=== PATIENT | female | born 1945 | race Caucasian/White ===

== ENCOUNTER 2016-06-16 17:14 | Emergency (ER) | payer OTHER ==
[~2016-06-16] VITALS: Ht 157.5 cm; Wt 50.4 kg
[~2016-06-16 17:14] MED LIST: ADVIL200 MG PO; AMITIZA24 MICROGR PO; ATARAX10 MG PO; ATIVAN0.5 MG PO; BENADRYL ALLERG25 MG PO; BISAC-EVAC10 MG PR; BUSPAR10 MG PO; BUSPAR5 MG PO; BUSPIRONE HCL10 MG PO; CELEXA10 MG PO; CLONAZEPAM1 MG PO; DAILY VITAMIN1 EAC8 PO; DICYCLOMINE HCL10 MG PO; DOCUSATE SODIU100 MG PO; ESCITALOPRAM OX20 MG PO; FIBER500 MG PO; FLEET ENEMA-AD118 ML PR; FLUVOXAMINE MA100 MG PO; GAS-X80 MG PO; HYDROCODON-ACE1 EAC7 PO; KLONOPIN0.5 M1; LEVAQUIN500 MG PO; LEXAPRO20 MG PO; LEXAPRO5 MG PO; LINZESS290 MCG PO; LORAZEPAM0.5 MG PO; LOVENOX30 MG/0.3 SC; MAALOX ADVANCE1 EACH PO; MAALOX ADVANCE355 ML PO; MILK OF MAGNESI10 ML PO; MIRALAX17 GM PO; MIRALAX255 GM PO; MOTRIN IB200 MG PO; NEXIUM40 MG PO; NOHOMEMEDS; OLANZAPINE2.5 MG PO; OLANZAPINE5 MG PO; ONE-A-DAY ESSE1 EAC1 PO; POLYETHYLENE GL17 GM PO; PROBIOTIC1 EAC1 PO; PROZAC20 MG PO; PROZAC40 MG PO; SENNA8.6 MG PO; STOOL SOFTENER100 MG PO; TUMS500 MG PO; ZANTAC150 MG PO; ZOLPIDEM TARTRAT5 MG PO
[2016-06-16 17:56] LABS: HEMATOCRIT 35.5 % (36.0-46.0); MCH 25.9 PG (29.0-34.0); MCHC 33.2 G/DL (30.0-36.0); MEAN PLAT.VOLUME 9.9 uM^3 (9.5-12.4); PLATELET COUNT 352 K/uL (156-360); RBC DIS.WIDTH-CV 13.9 % (11.8-14.6); RBC DIS.WIDTH-SD 38.4 % (39-53); RED BLOOD COUNT 4.55 M/uL (3.80-5.20); WHITE BLOOD COUNT 7.3 K/uL (4.1-10.2)
[2016-06-16 18:11] LABS: CHLORIDE 95 mEq/L (99-109); POTASSIUM 4.1 mEq/L (3.7-5.4); SODIUM 128 mEq/L (136-147)
[2016-06-16 18:13] LABS: GLUCOSE 88 mg/dL (70-99)
[2016-06-16 18:14] LABS: ANION GAP 10 MEQ/L (2-14)
[2016-06-16 18:15] LABS: TOTAL BILIRUBIN 0.6 mg/dL (0.0-1.0)
[2016-06-16 18:16] LABS: ALKALINE PHOSPHATASE 52 IU/L (3-129)
[2016-06-16 18:17] LABS: GFR ESTIMATE (CALCULATED) 58 mL/min/
[2016-06-16 18:18] LABS: UREA NITROGEN (BUN) 11 mg/dL (9-23)
[2016-06-16 22:56] LABS: ADD MIUA? YES; BILIRUBIN NEGATIVE; BLOOD NEGATIVE; COLOR STRAW ((YELLOW)); GLUCOSE (STRIP) NEGATIVE; KETONES 20; LEUKOCYTES MODERATE; NITRITE NEGATIVE; PROTEIN (STRIP) NEGATIVE; SPECIFIC GRAVITY 1.006 (1.000-1.030); UROBILINOGEN 0.2 MG/DL (0.2-1.0)
[2016-06-16 23:15] LABS: BACTERIA NONE SEEN /HPF; EPITHELIAL CELLS RARE /HPF; MUCUS TRACE /LPF; RED BLOOD CELLS 0-5 /HPF (0-5); UCUL ADDED? NO; WHITE BLOOD CELLS 0-5 /HPF (0-5)
[2016-06-17 04:49] VITALS: BP 144/77
[2016-06-18] MEDS ORDERED: CITALOPRAM HBR40 MG PO (20:51)
[2016-06-18] MEDS ORDERED: LORAZEPAM0.5 MG PO (20:53)
[2016-06-18] MEDS ORDERED: NEXIUM40 MG PO (20:54)
== END 2016-06-17 04:51 | disposition home or self-care (01) ==
LOC: EME 17:14
DX: R19.7 Diarrhea, unspecified (principal)
CPT/HCPCS: 74020; 80053; 81003; 85027; 99281; 99284; J7030

== ENCOUNTER 2016-06-18 16:06 | Inpatient (IN) | payer OTHER ==
[~2016-06-18] VITALS: Ht 157.5 cm; Wt 46.6 kg
[2016-06-18 16:58] LABS: ADD MIUA? YES; BILIRUBIN NEGATIVE; BLOOD NEGATIVE; COLOR YELLOW ((YELLOW)); GLUCOSE (STRIP) NEGATIVE; KETONES 20; LEUKOCYTES TRACE; NITRITE NEGATIVE; PROTEIN (STRIP) NEGATIVE; SPECIFIC GRAVITY 1.009 (1.000-1.030); UROBILINOGEN 0.2 MG/DL (0.2-1.0)
[2016-06-18 17:07] LABS: ADD MEDTOX COMMENT Y; AMPHETAMINE NEGATIVE (500 ng/mL); BARBITURATES NEGATIVE (200 ng/mL); BENZODIAZEPINES PRESUMPTIVE POSITIVE (150 ng/mL); COCAINE NEGATIVE (150 ng/mL); INTERNAL CONTROLS VALID? YES; METHADONE NEGATIVE (200 ng/mL); METHAMPHETAMINE NEGATIVE (500 ng/mL); OPIATES (MORPHINE) NEGATIVE (100 ng/mL); OXYCODONE NEGATIVE (100 ng/mL); PHENCYCLIDINE NEGATIVE (25 ng/mL); PROPOXYPHENE NEGATIVE (300 ng/mL); THC CANNABINOIDS NEGATIVE (50 ng/mL); TRICYCLIC ANTIDEPRESSANTS NEGATIVE (300 ng/mL)
[2016-06-18 17:13] LABS: BACTERIA NONE SEEN /HPF; EPITHELIAL CELLS RARE /HPF; MUCUS 2+ /LPF; RED BLOOD CELLS 0-5 /HPF (0-5); UCUL ADDED? NO; WHITE BLOOD CELLS 0-5 /HPF (0-5)
[2016-06-18 17:27] LABS: HEMATOCRIT 35.1 % (36.0-46.0); MCH 25.7 PG (29.0-34.0); MCHC 32.8 G/DL (30.0-36.0); MCV 78.5 FL (83-99); MEAN PLAT.VOLUME 10.1 uM^3 (9.5-12.4); PLATELET COUNT 343 K/uL (156-360); RBC DIS.WIDTH-SD 38.8 % (39-53); RED BLOOD COUNT 4.47 M/uL (3.80-5.20); WHITE BLOOD COUNT 6.5 K/uL (4.1-10.2)
[2016-06-18 17:37] LABS: CHLORIDE 102 mEq/L (99-109); POTASSIUM 4.2 mEq/L (3.7-5.4); SODIUM 134 mEq/L (136-147)
[2016-06-18 17:38] LABS: GLUCOSE 63 mg/dL (70-99)
[2016-06-18 17:40] LABS: ANION GAP 9 MEQ/L (2-14)
[2016-06-18 17:41] LABS: SERUM ETHYL ALCOHOL < 10 mg/dL
[2016-06-18 17:42] LABS: GFR ESTIMATE (CALCULATED) > 59 mL/min/
[2016-06-18 17:43] LABS: UREA NITROGEN (BUN) 11 mg/dL (9-23)
[2016-06-18 17:45] LABS: CREATINE KINASE 82 IU/L (1-294); TOTAL CK 82 IU/L (1-294)
[2016-06-18 17:48] LABS: BENZODIAZEPINES QUANT VALUE 0 NG/ML
[2016-06-18 17:50] LABS: BENZODIAZEPINES, URINE SCREEN Negative (200 ng/mL)
[2016-06-18 17:53] LABS: CK-MB 2.3 ng/mL (0.0-4.9)
[2016-06-18 20:20] VITALS: BP 138/73
[2016-06-18] MEDS ORDERED: CITALOPRAM HBR40 MG PO (20:51)
[2016-06-18] MEDS ORDERED: LORAZEPAM0.5 MG PO (20:53)
[2016-06-18] MEDS ORDERED: NEXIUM40 MG PO (20:54)
[2016-06-19 07:40] VITALS: BP 101/52
[2016-06-19 15:52] VITALS: BP 130/61
[2016-06-20 07:52] VITALS: BP 111/54
[2016-06-20 15:25] VITALS: BP 123/66
[2016-06-21 07:48] VITALS: BP 122/58
[2016-06-21 15:15] VITALS: BP 138/74
[2016-06-22 07:52] VITALS: BP 128/58
[2016-06-22 15:16] VITALS: BP 155/73
[2016-06-23 07:46] VITALS: BP 113/53
[2016-06-23 15:24] VITALS: BP 136/72
[2016-06-24 07:54] VITALS: BP 119/57
[2016-06-24 15:37] VITALS: BP 127/69
[2016-06-25 08:00] VITALS: BP 125/62
[2016-06-25 15:38] VITALS: BP 147/72
[2016-06-26 09:22] VITALS: BP 111/57
[2016-06-27 07:37] VITALS: BP 126/60
[2016-06-27 15:28] VITALS: BP 155/72
[2016-06-28 08:06] VITALS: BP 127/59
[2016-06-28 15:02] VITALS: BP 148/64
[2016-06-29 07:36] VITALS: BP 111/52
[2016-06-29 15:32] VITALS: BP 159/74
[2016-06-30 08:03] VITALS: BP 127/60
[2016-06-30 15:04] VITALS: BP 111/71
[2016-07-01 07:39] VITALS: BP 152/67
[2016-07-01] MEDS ORDERED: FIBER TABS625 MG PO (09:09)
[2016-07-01] MEDS ORDERED: ESCITALOPRAM OX20 MG PO (09:09)
[2016-07-01] MEDS ORDERED: PANTOPRAZOLE SO40 MG PO (09:09)
[2016-07-01] MEDS ORDERED: OLANZAPINE2.5 MG PO (09:09)
[2016-07-01] MEDS ORDERED: LORAZEPAM0.5 MG PO (09:09)
[2016-07-01] MEDS ORDERED: MILK OF MAGNESI10 ML PO (09:09)
== END 2016-07-01 13:49 | disposition home or self-care (01) | DRG 885 ==
LOC: EME 16:06 → 1WEST 20:00 → EDOF 20:00 → 1WEST 20:17
PROVIDERS: Emergency Medicine
DX: F33.2 Major depressive disorder, recurrent severe without psychotic features (principal); F60.5 Obsessive-compulsive personality disorder; F60.7 Dependent personality disorder; Z68.1 Body mass index [BMI] 19.9 or less, adult; Z72.4 Inappropriate diet and eating habits; F41.9 Anxiety disorder, unspecified; K58.1 Irritable bowel syndrome with constipation; I10 Essential (primary) hypertension; K21.9 Gastro-esophageal reflux disease without esophagitis; M81.0 Age-related osteoporosis without current pathological fracture; G47.00 Insomnia, unspecified; Z87.81 Personal history of (healed) traumatic fracture
CPT/HCPCS: 74176; 80048; 81003; 82550; 82553; 84999; 85027; 87086; 90837; 97150 GO; 97166 GO; 99281; 99285; G0480

== ENCOUNTER 2016-09-24 20:46 | Emergency (ER) | payer OTHER ==
[~2016-09-24] VITALS: Ht 157.5 cm; Wt 48.7 kg
[~2016-09-24 20:46] MED LIST changes: +CITALOPRAM HBR40 MG PO; +FIBER TABS625 MG PO; +PANTOPRAZOLE SO40 MG PO
[2016-09-24 23:46] LABS: CHLORIDE 101 mEq/L (99-109); POTASSIUM 4.7 mEq/L (3.7-5.4); SODIUM 135 mEq/L (136-147)
[2016-09-24 23:48] LABS: GLUCOSE 79 mg/dL (70-99)
[2016-09-24 23:49] LABS: ANION GAP 11 MEQ/L (2-14)
[2016-09-24 23:50] LABS: TOTAL BILIRUBIN 0.5 mg/dL (0.0-1.0)
[2016-09-24 23:52] LABS: ALKALINE PHOSPHATASE 56 IU/L (3-129); GFR ESTIMATE (CALCULATED) > 59 mL/min/
[2016-09-24 23:53] LABS: UREA NITROGEN (BUN) 18 mg/dL (9-23)
[2016-09-24 23:55] LABS: LIPASE 45 U/L (1.0-51.0)
[2016-09-25 00:19] LABS: HEMATOCRIT 34.2 % (36.0-46.0); MCH 26.3 PG (29.0-34.0); MCHC 31.9 G/DL (30.0-36.0); MCV 82.4 FL (83-99); MEAN PLAT.VOLUME 9.3 uM^3 (9.5-12.4); PLATELET COUNT 283 K/uL (156-360); RBC DIS.WIDTH-CV 15.9 % (11.8-14.6); RBC DIS.WIDTH-SD 47.8 % (39-53); RED BLOOD COUNT 4.15 M/uL (3.80-5.20); WHITE BLOOD COUNT 5.9 K/uL (4.1-10.2)
[2016-09-25 00:44] LABS: ADD MIUA? NO; BILIRUBIN NEGATIVE; BLOOD NEGATIVE; COLOR COLORLESS ((YELLOW)); GLUCOSE (STRIP) NEGATIVE; KETONES NEGATIVE; LEUKOCYTES NEGATIVE; NITRITE NEGATIVE; PROTEIN (STRIP) NEGATIVE; SPECIFIC GRAVITY 1.004 (1.000-1.030); UCUL ADDED? NO; UROBILINOGEN 0.2 MG/DL (0.2-1.0)
[2016-09-25] MEDS ORDERED: CITRATE OF MAG296 ML PO (00:44)
[2016-09-25] MEDS ORDERED: COLACE100 MG PO (00:44)
[2016-09-25] MEDS ORDERED: CARAFATE100 MG/ML PO (00:46)
[2016-09-25 01:59] VITALS: BP 151/67
== END 2016-09-25 02:00 | disposition home or self-care (01) ==
LOC: EME 20:46
PROVIDERS: Emergency Medicine
DX: R10.9 Unspecified abdominal pain (principal); K59.00 Constipation, unspecified; F42.9 Obsessive-compulsive disorder, unspecified; F32.9 Major depressive disorder, single episode, unspecified; I10 Essential (primary) hypertension; K21.9 Gastro-esophageal reflux disease without esophagitis
CPT/HCPCS: 74176; 80053; 81003; 83605; 83690; 85027; 93005; 99281; 99284; J2405; J7030

== ENCOUNTER 2016-10-05 14:49 | Emergency (ER) | payer OTHER ==
[~2016-10-05] VITALS: Ht 157.5 cm; Wt 47.1 kg
[~2016-10-05 14:49] MED LIST changes: +CARAFATE100 MG/ML PO; +CITRATE OF MAG296 ML PO; +COLACE100 MG PO
[2016-10-05 15:36] LABS: HEMATOCRIT 38.6 % (36.0-46.0); MCH 27.2 PG (29.0-34.0); MCHC 32.6 G/DL (30.0-36.0); MCV 83.2 FL (83-99); MEAN PLAT.VOLUME 9.8 uM^3 (9.5-12.4); PLATELET COUNT 284 K/uL (156-360); RBC DIS.WIDTH-CV 15.1 % (11.8-14.6); RBC DIS.WIDTH-SD 45.5 % (39-53); RED BLOOD COUNT 4.64 M/uL (3.80-5.20); WHITE BLOOD COUNT 5.4 K/uL (4.1-10.2)
[2016-10-05 15:46] LABS: CHLORIDE 99 mEq/L (99-109); POTASSIUM 4.1 mEq/L (3.7-5.4); SODIUM 135 mEq/L (136-147)
[2016-10-05 15:47] LABS: GLUCOSE 90 mg/dL (70-99)
[2016-10-05 15:49] LABS: ANION GAP 8 MEQ/L (2-14)
[2016-10-05 15:51] LABS: GFR ESTIMATE (CALCULATED) > 59 mL/min/
[2016-10-05 15:52] LABS: UREA NITROGEN (BUN) 15 mg/dL (9-23)
[2016-10-05 18:29] VITALS: BP 132/71
== END 2016-10-05 18:35 | disposition home or self-care (01) ==
LOC: EME 14:49
PROVIDERS: Emergency Medicine
DX: F42.9 Obsessive-compulsive disorder, unspecified (principal); R42 Dizziness and giddiness; I10 Essential (primary) hypertension; K21.9 Gastro-esophageal reflux disease without esophagitis; M81.0 Age-related osteoporosis without current pathological fracture; K58.9 Irritable bowel syndrome, unspecified
CPT/HCPCS: 80048; 85027; 99281; 99285; J7040

== ENCOUNTER 2016-10-06 15:22 | Emergency (ER) | payer OTHER ==
[~2016-10-06] VITALS: Ht 157.5 cm; Wt 46.6 kg
[2016-10-06 16:55] LABS: EOSINOPHIL (%) 0.6 % (0-5); EOSINOPHIL COUNT 0.1 K/uL (0-0.3); HEMATOCRIT 38.6 % (36.0-46.0); IMMATURE GRANULOCYTE (%) 0.2 % (0.0-0.7); INSTRUMENT ABS NEUTROPHIL CT 6.4 K/uL; LYMPHOCYTE COUNT 1.1 K/uL (1.0-2.8); MCH 27.3 PG (29.0-34.0); MCHC 32.6 G/DL (30.0-36.0); MCV 83.5 FL (83-99); MEAN PLAT.VOLUME 9.6 uM^3 (9.5-12.4); MONOCYTE (%) 7.1 % (3-12); MONOCYTE COUNT 0.6 K/uL (0-0.8); NEUTROPHIL (%) 78.3 % (45-76); NEUTROPHIL COUNT 6.4 K/uL (1.8-6.4); PLATELET COUNT 304 K/uL (156-360); RBC DIS.WIDTH-CV 14.8 % (11.8-14.6); RBC DIS.WIDTH-SD 45.1 % (39-53); RED BLOOD COUNT 4.62 M/uL (3.80-5.20); WHITE BLOOD COUNT 8.2 K/uL (4.1-10.2)
[2016-10-06 16:59] LABS: CHLORIDE 101 mEq/L (99-109); POTASSIUM 4.1 mEq/L (3.7-5.4); SODIUM 134 mEq/L (136-147)
[2016-10-06 17:01] LABS: GLUCOSE 91 mg/dL (70-99)
[2016-10-06 17:02] LABS: ANION GAP 5 MEQ/L (2-14)
[2016-10-06 17:03] LABS: TOTAL BILIRUBIN 0.4 mg/dL (0.0-1.0)
[2016-10-06 17:05] LABS: ALKALINE PHOSPHATASE 52 IU/L (3-129); GFR ESTIMATE (CALCULATED) > 59 mL/min/
[2016-10-06 17:06] LABS: UREA NITROGEN (BUN) 16 mg/dL (9-23)
[2016-10-06 17:08] LABS: LIPASE 72 U/L (1.0-51.0)
[2016-10-07 02:06] LABS: ADD MIUA? NO; BILIRUBIN NEGATIVE; BLOOD NEGATIVE; COLOR STRAW ((YELLOW)); GLUCOSE (STRIP) NEGATIVE; KETONES NEGATIVE; LEUKOCYTES NEGATIVE; NITRITE NEGATIVE; PROTEIN (STRIP) NEGATIVE; SPECIFIC GRAVITY 1.008 (1.000-1.030); UCUL ADDED? NO; UROBILINOGEN 0.2 MG/DL (0.2-1.0)
[2016-10-07] MEDS ORDERED: LORAZEPAM0.5 MG PO (13:37)
[2016-10-07] MEDS ORDERED: LINZESS290 MCG PO (13:40)
[2016-10-07] MEDS ORDERED: PANTOPRAZOLE SO40 MG PO (13:40)
[2016-10-07 15:22] VITALS: BP 152/75
== END 2016-10-07 15:23 | disposition home or self-care (01) ==
LOC: EME → EDBD 15:22 → EME 10-07 15:23
PROVIDERS: Emergency Medicine
DX: F42.9 Obsessive-compulsive disorder, unspecified (principal); F33.2 Major depressive disorder, recurrent severe without psychotic features; F41.9 Anxiety disorder, unspecified; F60.7 Dependent personality disorder; R19.7 Diarrhea, unspecified; I10 Essential (primary) hypertension; K21.9 Gastro-esophageal reflux disease without esophagitis; M81.0 Age-related osteoporosis without current pathological fracture
CPT/HCPCS: 71020; 74176; 80053; 81003; 83690; 85025; 90837; 99281; 99285

== ENCOUNTER 2016-10-26 17:29 | Emergency (ER) | payer OTHER ==
[~2016-10-26] VITALS: Ht 157.5 cm; Wt 38.0 kg
[2016-10-26 21:34] VITALS: BP 175/89
== END 2016-10-26 21:53 | disposition home or self-care (01) ==
LOC: EME 17:29
DX: E46 Unspecified protein-calorie malnutrition (principal); F42.9 Obsessive-compulsive disorder, unspecified; I10 Essential (primary) hypertension; K21.9 Gastro-esophageal reflux disease without esophagitis
CPT/HCPCS: 99281; 99285

== ENCOUNTER 2016-11-02 12:36 | Emergency (ER) | payer OTHER ==
[~2016-11-02] VITALS: Ht 160 cm; Wt 40.7 kg
[2016-11-02 13:32] LABS: HEMATOCRIT 40.7 % (36.0-46.0); MCH 27.6 PG (29.0-34.0); MCHC 32.7 G/DL (30.0-36.0); MCV 84.4 FL (83-99); MEAN PLAT.VOLUME 9.6 uM^3 (9.5-12.4); PLATELET COUNT 268 K/uL (156-360); RBC DIS.WIDTH-CV 13.5 % (11.8-14.6); RED BLOOD COUNT 4.82 M/uL (3.80-5.20); WHITE BLOOD COUNT 3.8 K/uL (4.1-10.2)
[2016-11-02 13:45] LABS: CHLORIDE 101 mEq/L (99-109); POTASSIUM 3.9 mEq/L (3.7-5.4); SODIUM 136 mEq/L (136-147)
[2016-11-02 13:47] LABS: GLUCOSE 72 mg/dL (70-99)
[2016-11-02 13:48] LABS: ANION GAP 10 MEQ/L (2-14)
[2016-11-02 13:50] LABS: SERUM ETHYL ALCOHOL < 10 mg/dL
[2016-11-02 13:51] LABS: GFR ESTIMATE (CALCULATED) > 59 mL/min/
[2016-11-02 13:52] LABS: UREA NITROGEN (BUN) 12 mg/dL (9-23)
[2016-11-02 13:54] LABS: SALICYLATE < 5.0 MG/DL (15-30)
[2016-11-02 16:33] LABS: ADD MIUA? YES; BILIRUBIN NEGATIVE; BLOOD NEGATIVE; COLOR STRAW ((YELLOW)); GLUCOSE (STRIP) NEGATIVE; KETONES 5; LEUKOCYTES SMALL; NITRITE NEGATIVE; PROTEIN (STRIP) NEGATIVE; SPECIFIC GRAVITY 1.005 (1.000-1.030); UROBILINOGEN 0.2 MG/DL (0.2-1.0)
[2016-11-02 16:36] LABS: BACTERIA RARE /HPF; EPITHELIAL CELLS RARE /HPF; MUCUS TRACE /LPF; RED BLOOD CELLS 0-5 /HPF (0-5); WHITE BLOOD CELLS 0-5 /HPF (0-5)
[2016-11-02 16:43] LABS: ADD MEDTOX COMMENT Y; AMPHETAMINE NEGATIVE (500 ng/mL); BARBITURATES NEGATIVE (200 ng/mL); BENZODIAZEPINES PRESUMPTIVE POSITIVE (150 ng/mL); COCAINE NEGATIVE (150 ng/mL); INTERNAL CONTROLS VALID? YES; METHADONE NEGATIVE (200 ng/mL); METHAMPHETAMINE NEGATIVE (500 ng/mL); OPIATES (MORPHINE) NEGATIVE (100 ng/mL); OXYCODONE NEGATIVE (100 ng/mL); PHENCYCLIDINE NEGATIVE (25 ng/mL); PROPOXYPHENE NEGATIVE (300 ng/mL); THC CANNABINOIDS NEGATIVE (50 ng/mL); TRICYCLIC ANTIDEPRESSANTS NEGATIVE (300 ng/mL)
[2016-11-02 17:00] LABS: BENZODIAZEPINES QUANT VALUE 0 NG/ML; BENZODIAZEPINES, URINE SCREEN Negative (200 ng/mL)
[2016-11-02 18:44] VITALS: BP 132/80
== END 2016-11-02 18:47 ==
LOC: EME 12:36
PROVIDERS: Emergency Medicine
DX: F41.9 Anxiety disorder, unspecified (principal); F33.2 Major depressive disorder, recurrent severe without psychotic features; F60.5 Obsessive-compulsive personality disorder; F60.7 Dependent personality disorder; I10 Essential (primary) hypertension; K21.9 Gastro-esophageal reflux disease without esophagitis; Z91.041 Radiographic dye allergy status; Z88.8 Allergy status to other drugs, medicaments and biological substances
CPT/HCPCS: 80048; 81003; 84999; 85027; 90837; 99281; 99284; G0480

== ENCOUNTER 2017-01-22 18:54 | Emergency (ER) | payer OTHER ==
[~2017-01-22] VITALS: Ht 157.5 cm; Wt 45.8 kg
[2017-01-22 20:39] LABS: HEMATOCRIT 32.5 % (36.0-46.0); MCH 26.1 PG (29.0-34.0); MCHC 31.7 G/DL (30.0-36.0); MCV 82.5 FL (83-99); MEAN PLAT.VOLUME 9.5 uM^3 (9.5-12.4); PLATELET COUNT 243 K/uL (156-360); RBC DIS.WIDTH-CV 14.7 % (11.8-14.6); RBC DIS.WIDTH-SD 44.2 % (39-53); RED BLOOD COUNT 3.94 M/uL (3.80-5.20); WHITE BLOOD COUNT 4.9 K/uL (4.1-10.2)
[2017-01-22 20:48] LABS: CHLORIDE 100 mEq/L (99-109); POTASSIUM 4.2 mEq/L (3.7-5.4); SODIUM 135 mEq/L (136-147)
[2017-01-22 20:50] LABS: GLUCOSE 71 mg/dL (70-99)
[2017-01-22 20:51] LABS: ANION GAP 9 MEQ/L (2-14)
[2017-01-22 20:53] LABS: GFR ESTIMATE (CALCULATED) > 59 mL/min/; SERUM ETHYL ALCOHOL < 10 mg/dL
[2017-01-22 20:55] LABS: UREA NITROGEN (BUN) 23 mg/dL (9-23)
[2017-01-22 20:57] LABS: SALICYLATE < 5.0 MG/DL (15-30)
[2017-01-22 21:31] LABS: ADD MEDTOX COMMENT Y; AMPHETAMINE NEGATIVE (500 ng/mL); BARBITURATES NEGATIVE (200 ng/mL); BENZODIAZEPINES PRESUMPTIVE POSITIVE (150 ng/mL); COCAINE NEGATIVE (150 ng/mL); INTERNAL CONTROLS VALID? YES; METHADONE NEGATIVE (200 ng/mL); METHAMPHETAMINE NEGATIVE (500 ng/mL); OPIATES (MORPHINE) NEGATIVE (100 ng/mL); OXYCODONE NEGATIVE (100 ng/mL); PHENCYCLIDINE NEGATIVE (25 ng/mL); PROPOXYPHENE NEGATIVE (300 ng/mL); THC CANNABINOIDS NEGATIVE (50 ng/mL); TRICYCLIC ANTIDEPRESSANTS NEGATIVE (300 ng/mL)
[2017-01-22 22:01] LABS: BENZODIAZEPINES QUANT VALUE 0 NG/ML; BENZODIAZEPINES, URINE SCREEN Negative (200 ng/mL)
[2017-01-23 11:59] VITALS: BP 148/81
== END 2017-01-23 12:05 | disposition home or self-care (01) ==
LOC: EME 18:54
PROVIDERS: Emergency Medicine
DX: F33.2 Major depressive disorder, recurrent severe without psychotic features (principal); F42.9 Obsessive-compulsive disorder, unspecified; T43.222A Poisoning by selective serotonin reuptake inhibitors, intentional self-harm, initial encounter; R45.851 Suicidal ideations; F60.7 Dependent personality disorder; Z91.5 Personal history of self-harm; I10 Essential (primary) hypertension; K58.9 Irritable bowel syndrome, unspecified; K21.9 Gastro-esophageal reflux disease without esophagitis
CPT/HCPCS: 80048; 84999; 85027; 90839; 93005; 99281; 99285; G0480

== ENCOUNTER 2017-01-27 19:22 | Emergency (ER) | payer OTHER ==
[~2017-01-27] VITALS: Ht 157.5 cm; Wt 36.2 kg
[2017-01-27 20:14] LABS: MCH 26.5 PG (29.0-34.0); MCHC 33.3 G/DL (30.0-36.0); MCV 79.4 FL (83-99); MEAN PLAT.VOLUME 10.1 uM^3 (9.5-12.4); PLATELET COUNT 353 K/uL (156-360); RBC DIS.WIDTH-CV 15.1 % (11.8-14.6); RBC DIS.WIDTH-SD 43.1 % (39-53); RED BLOOD COUNT 4.91 M/uL (3.80-5.20); WHITE BLOOD COUNT 7.5 K/uL (4.1-10.2)
[2017-01-27 20:42] LABS: CHLORIDE 97 mEq/L (99-109); POTASSIUM 4.6 mEq/L (3.7-5.4)
[2017-01-27 20:43] LABS: SODIUM 134 mEq/L (136-147)
[2017-01-27 20:44] LABS: GLUCOSE 113 mg/dL (70-99)
[2017-01-27 20:46] LABS: ANION GAP 13 MEQ/L (2-14)
[2017-01-27 20:47] LABS: SERUM ETHYL ALCOHOL < 10 mg/dL
[2017-01-27 20:48] LABS: GFR ESTIMATE (CALCULATED) 29 mL/min/
[2017-01-27 20:54] LABS: UREA NITROGEN (BUN) 42 mg/dL (9-23)
[2017-01-27 21:19] VITALS: BP 150/78
== END 2017-01-27 22:05 | disposition home or self-care (01) ==
LOC: EME → EDBD 19:22 → EME 19:22
DX: F42.9 Obsessive-compulsive disorder, unspecified (principal); F41.9 Anxiety disorder, unspecified; N28.9 Disorder of kidney and ureter, unspecified; F33.1 Major depressive disorder, recurrent, moderate; F60.7 Dependent personality disorder; K21.9 Gastro-esophageal reflux disease without esophagitis; I10 Essential (primary) hypertension; M81.0 Age-related osteoporosis without current pathological fracture
CPT/HCPCS: 80048; 85027; 90839; 99281; 99285; G0480

== ENCOUNTER 2017-01-28 16:33 | Emergency (ER) | payer OTHER ==
[~2017-01-28] VITALS: Ht 157.5 cm; Wt 38.3 kg
[2017-01-28 17:54] LABS: EOSINOPHIL (%) 0 % (0-5); HEMATOCRIT 36.9 % (36.0-46.0); IMMATURE GRANULOCYTE (%) 0.3 % (0.0-0.7); INSTRUMENT ABS NEUTROPHIL CT 4.3 K/uL; LYMPHOCYTE COUNT 1.2 K/uL (1.0-2.8); MCH 26.5 PG (29.0-34.0); MCHC 33.1 G/DL (30.0-36.0); MEAN PLAT.VOLUME 9.8 uM^3 (9.5-12.4); MONOCYTE (%) 9.2 % (3-12); MONOCYTE COUNT 0.6 K/uL (0-0.8); NEUTROPHIL (%) 70.6 % (45-76); NEUTROPHIL COUNT 4.3 K/uL (1.8-6.4); PLATELET COUNT 323 K/uL (156-360); RBC DIS.WIDTH-CV 15.1 % (11.8-14.6); RBC DIS.WIDTH-SD 43.4 % (39-53); RED BLOOD COUNT 4.61 M/uL (3.80-5.20); WHITE BLOOD COUNT 6.1 K/uL (4.1-10.2)
[2017-01-28 18:03] LABS: CHLORIDE 96 mEq/L (99-109); SODIUM 131 mEq/L (136-147)
[2017-01-28 18:06] LABS: GLUCOSE 93 mg/dL (70-99)
[2017-01-28 18:07] LABS: ANION GAP 11 MEQ/L (2-14)
[2017-01-28 18:08] LABS: TOTAL BILIRUBIN 0.4 mg/dL (0.0-1.0)
[2017-01-28 18:09] LABS: ALKALINE PHOSPHATASE 69 IU/L (3-129); GFR ESTIMATE (CALCULATED) 47 mL/min/; SERUM ETHYL ALCOHOL < 10 mg/dL
[2017-01-28 18:11] LABS: UREA NITROGEN (BUN) 37 mg/dL (9-23)
[2017-01-29 15:53] VITALS: BP 140/69
== END 2017-01-29 15:53 | disposition home or self-care (01) ==
LOC: EME 16:33
PROVIDERS: Emergency Medicine
DX: F42.9 Obsessive-compulsive disorder, unspecified (principal); F60.7 Dependent personality disorder; R45.851 Suicidal ideations; F33.1 Major depressive disorder, recurrent, moderate
CPT/HCPCS: 80053; 85025; 90832; 99281; 99284; G0480